=== PATIENT | male | born 1965 | race Asian ===

== ENCOUNTER 2017-10-12 19:11 | Emergency (ER) | payer OTHER ==
[~2017-10-12] VITALS: Ht 165.1 cm; Wt 70.3 kg
[2017-10-12 19:13] VITALS: BP 133/89
[2017-10-12] MEDS ORDERED: KETOROLAC 30 MG/1 ML IM ONE (19:30)
[2017-10-12] MEDS ORDERED: DIAZEPAM 5 MG TABLET PO ONE (19:30)
[2017-10-12] MEDS ORDERED: KETOROLAC 30 MG/1 ML ONE (19:30)
[2017-10-12] MEDS ORDERED: DIAZEPAM 5 MG TABLET ONE (19:30)
[2017-10-12] MEDS ORDERED: OXYcodone/APAP 5/325MG TABLET PO ONE (19:30)
== END 2017-10-12 20:25 | disposition home or self-care (01) ==
LOC: ED 20:18
DX: S29.012A Strain of muscle and tendon of back wall of thorax, initial encounter (principal); X50.0XXA Overexertion from strenuous movement or load, initial encounter; Y93.89 Activity, other specified; Y92.89 Other specified places as the place of occurrence of the external cause; Y99.8 Other external cause status
CPT/HCPCS: 72072; 96372; 99284; J1885

== ENCOUNTER → 2018-02-15 | Outpatient (CLI) | payer OTHER | END | disposition home or self-care (01) | LOC: RAD 14:23 | PROVIDERS: ATTEND Internal Medicine Hematology & Oncology | DX: R76.12 Nonspecific reaction to cell mediated immunity measurement of gamma interferon antigen response without active tuberculosis (principal) ==

== ENCOUNTER 2019-10-30 08:40 | Outpatient (CLI) | payer OTHER ==
[2019-10-30 09:27] LABS: BASOPHILS # (AUTO) 0.03 x10^3/uL (0-0.1); BASOPHILS % (AUTO) 0 % (0-1); EOSINOPHILS # (AUTO) 0.06 x10^3/uL (0-0.4); EOSINOPHILS % (AUTO) 1 % (1-7); LYMPHOCYTES % (AUTO) 31 % (22-44); MD NO; MEAN CORPUSCULAR HEMOGLOBIN 29.6 pg (27.5-34.5); MEAN CORPUSCULAR HGB CONC 33.2 g/dL (33.2-36.2); MEAN CORPUSCULAR VOLUME 89.1 fL (81-97); MEAN PLATELET VOLUME 7.4 fL (7.4-10.4); MONOCYTES # (AUTO) 0.42 x10^3/uL (0.2-0.8); MONOCYTES % (AUTO) 7 % (2-9); NEUTROPHILS # (AUTO) 3.74 x10^3/uL (1.8-6.8); NEUTROPHILS % (AUTO) 61 % (42-75); PLATELET COUNT 271 x10^3/uL (130-400); RED BLOOD COUNT 5.45 x10^6/uL (4.38-5.82); RED CELL DISTRIBUTION WIDTH 12.8 % (9.4-14.8)
[2019-10-30 09:30] LABS: MICROSCOPIC NOT IND
[2019-10-30 09:38] LABS: ALBUMIN 3.8 g/dL (3.4-5.0); CALCIUM 9.1 mg/dL (8.5-10.1)
[2019-10-30 09:45] LABS: ALANINE AMINOTRANSFERASE 29 U/L (12-78); ALKALINE PHOSPHATASE 59 U/L (45-117); BILIRUBIN,TOTAL 0.7 mg/dL (0.2-1.0); CHOL/HDL RATIO 5.5; CHOLESTEROL, TOTAL 263 mg/dL (140-239); CREATININE 1.19 mg/dL (0.7-1.3); HDL CHOL % 18 % (26-37); HDL CHOLESTEROL (DIRECT) 48 mg/dL (40-60); LDL CHOLESTEROL,CALCULATED 198 mg/dL (54-169); LDL/HDL RATIO 4.1 (0.5-3.0); PSA SCREEN 3.48 ng/mL (0.00-4.00); TOTAL PROTEIN 7.5 g/dL (6.4-8.2); TRIGLYCERIDES 83 mg/dL (50-200); VLDL CHOLESTEROL 17 mg/dL (0-25)
[2019-10-30 09:48] LABS: ANION GAP 5 mmol/L (5-15); CHLORIDE 109 mmol/L (98-107)
== END 2019-10-30 23:59 | disposition home or self-care (01) ==
LOC: LAB 08:40
PROVIDERS: ATTEND Family Medicine
DX: Z00.00 Encounter for general adult medical examination without abnormal findings (principal); Z12.5 Encounter for screening for malignant neoplasm of prostate; R79.9 Abnormal finding of blood chemistry, unspecified; I10 Essential (primary) hypertension; E78.5 Hyperlipidemia, unspecified
CPT/HCPCS: 36415; 80053; 80061; 81003; 83036; 84153; 85025; G0103

== ENCOUNTER 2020-12-14 04:02 | Emergency (ER) | payer OTHER ==
[~2020-12-14] VITALS: Ht 165.1 cm; Wt 75.3 kg
[2020-12-14 04:04] VITALS: BP 127/82
--- NOTE | 2020-12-14 08:03 | NUR ---
PT SITTING UP ON GURNEY, NO ACUTE DISTRESS NOTED. NO IV TO DC. REVIEWED DC INSTRUCTIONS WITH PT. UNDERSTANDING VERBALIZED. PT HAS APPT WITH PCP 12/26, ENC KEEPING THE APPT AND F/U SOONER IF NEEDED. PT LEFT AMB, GAIT STEADY
== END 2020-12-14 08:07 | disposition home or self-care (01) ==
LOC: ED 08:00
DX: U07.1 COVID-19 (principal); J12.82 Pneumonia due to coronavirus disease 2019; J20.8 Acute bronchitis due to other specified organisms
CPT/HCPCS: 71045; 99284; U0003; U0005

== ENCOUNTER 2020-12-16 21:29 | Emergency (ER) | payer OTHER ==
[~2020-12-16] VITALS: Ht 165.1 cm; Wt 72.2 kg
[2020-12-16 21:33] VITALS: BP 123/87
--- NOTE | 2020-12-16 23:09 | NUR ---
pt to room from lobby
--- NOTE | 2020-12-16 23:13 | NUR ---
PATIENT TO ROOM 38 PATIENT REPORTS HAVING TYLENOL THIS AFTERNOON
[2020-12-16] MEDS ORDERED: DEXAMETHASONE 4 MG TABLET PO ONE (23:30)
[2020-12-16] MEDS ORDERED: IBUPROFEN 600 MG TABLET PO ONE (23:30)
[2020-12-17] MEDS ORDERED: DEXAMETHASONE 4 MG TABLET ONE (00:04)
[2020-12-17] MEDS ORDERED: IBUPROFEN 600 MG TABLET ONE (00:05)
== END 2020-12-17 00:17 | disposition home or self-care (01) ==
LOC: ED 12-17 00:11
DX: U07.1 COVID-19 (principal); J12.82 Pneumonia due to coronavirus disease 2019
CPT/HCPCS: 99283